=== PATIENT | male | born 1965 | race Caucasian/White ===

== ENCOUNTER 2019-05-27 15:36 | Inpatient (IN) ==
[2019-05-27] MEDS ORDERED: SODIUM CHLORIDE 0.9% 500 ML IV STA (15:57)
[2019-05-27] MEDS ORDERED: ONDANSETRON 4 MG/2 ML VIAL ONE (16:59)
[2019-05-27] MEDS ORDERED: ONDANSETRON 4 MG/2 ML VIAL IV STA (16:59)
[2019-05-27] MEDS ORDERED: HYDROmorphone 2 MG/1 ML VIAL ONE (16:59)
[2019-05-27] MEDS ORDERED: HYDROmorphone 2 MG/1 ML VIAL IV STA (16:59)
[2019-05-27 17:21] LABS: Basophils # 0.1 10*3/uL (0.0-0.2); Basophils % 0.5 % (0.0-0.8); Eosinophils # 0.6 10*3/uL (0.0-0.87); Eosinophils % 5.2 % (0.00-10.9); Hematocrit 38.9 VOL% (42.0-52.0); Hemoglobin 12.7 GM/DL (14.0-18.0); Immature Granulocytes % 1.1 %; Immature Granulocytes Absolute 0.12 #; Lymphocytes # 1.3 10*3/uL (1.4-4.0); Lymphocytes % 11.8 % (21.2-54.2); Mean Corpuscular HGB Conc 32.6 GM/DL (32-36); Mean Corpuscular Volume 78.3 FL (87-102); Mean Platelet Volume 11.3 FL (9.6-12.0); Monocytes % 7.5 % (1.7-12.7); Neutrophils % 73.9 % (38.7-73.9); Platelet Count 229 T/CUMM (130-400); Red Blood Count 4.97 MC/CUMM (3.8-5.5); Red Cell Distribution Width 13.9 % (9.3-17.3); White Blood Count 10.9 T/CUMM (4-12)
[2019-05-27 17:46] LABS: Albumin 2.7 G/DL (3.4-5.0); Bilirubin,Total 0.6 MG/DL (0.2-1.0); Calcium 8.1 MG/DL (8.5-10.1); Osmolality,Calculated 281.2 MOS/KG (273-304)
[2019-05-27] MEDS ORDERED: VANCOMYCIN INJ 1,500 MG in SODIUM CHLORIDE 0.9% 500 ML IV STA (18:03)
[2019-05-27] MEDS ORDERED: ACETAMINOPHEN 325 MG TABLET PO PRN (18:09)
[2019-05-27] MEDS ORDERED: GLUCAGON 1 MG VIAL IM PRN (18:09)
[2019-05-27] MEDS ORDERED: DEXTROSE 50% 25 GM/50 ML VIAL IV PRN (18:09)
[2019-05-27 18:44] LABS: Apearance,Urine CLEAR (Clear); Bacteria,Urine Occasional /HPF (Few); Bilirubin,Urine Negative (Negative); Blood, Urine Negative (Negative); Glucose,Urine (UA) >=500 mg/dL (Negative); Ketones,Urine 5 mg/dL (Negative); Nitrite,Urine Negative (Negative); Protein,Urine Negative; RBC,Urine <1 /HPF (0-4); Squamous Epithelial Cell,Urine Occasional /HPF (0-10); Urine Color Yellow (Yellow); Urine Specific Gravity 1.029 (1.001-1.035); Urine Urobilinogen < 2.0 EU/DL (0.2-1.0); WBC,Urine 1 /HPF (0-6)
[2019-05-27 18:46] LABS: Sedimentation Rate-Westergren 25 MM/HR (0-20)
[2019-05-27] MEDS: SODIUM CHLORIDE 0.9% 1,000 ML IV SCH (20:36)
[2019-05-27] MEDS: VANCOMYCIN INJ 1,750 MG in SODIUM CHLORIDE 0.9% 500 ML IV SCH (20:37)
[2019-05-27] MEDS: ENOXAPARIN 40 MG/0.4 ML SYRINGE SUBCUT SCH (20:43)
[2019-05-27] MEDS: INSULIN LISPRO 100 UNIT/ML SUBCUT SCH (20:44)
[2019-05-27] MEDS: TICAGRELOR 90 MG TABLET PO SCH (20:44)
[2019-05-27] MEDS ORDERED: INFLUENZA VIRUS VACCINE 0.5 ML SYRINGE IM ONE (23:51)
[2019-05-28 05:07] LABS: Basophils % 0.5 % (0.0-0.8); Eosinophils # 0.5 10*3/uL (0.0-0.87); Eosinophils % 6.4 % (0.00-10.9); Hematocrit 33.6 VOL% (42.0-52.0); Hemoglobin 10.6 GM/DL (14.0-18.0); Immature Granulocytes % 1.5 %; Immature Granulocytes Absolute 0.12 #; Lymphocytes % 12.4 % (21.2-54.2); Mean Corpuscular HGB Conc 31.5 GM/DL (32-36); Mean Corpuscular Volume 79.6 FL (87-102); Mean Platelet Volume 11.1 FL (9.6-12.0); Monocytes % 8.9 % (1.7-12.7); Neutrophils % 70.3 % (38.7-73.9); Platelet Count 220 T/CUMM (130-400); Red Blood Count 4.22 MC/CUMM (3.8-5.5); White Blood Count 8.2 T/CUMM (4-12)
[2019-05-28 05:26] LABS: Calcium 8.5 MG/DL (8.5-10.1); Osmolality,Calculated 271.5 MOS/KG (273-304)
[2019-05-28] MEDS: VANCOMYCIN INJ 1,750 MG in SODIUM CHLORIDE 0.9% 500 ML IV SCH ×2 (06:28→17:43)
[2019-05-28] MEDS: INSULIN LISPRO 100 UNIT/ML SUBCUT SCH ×4 (08:59→22:34)
[2019-05-28] MEDS: POTASSIUM CHLORIDE 20 MEQ TABLET PO SCH (09:00)
[2019-05-28] MEDS: ASPIRIN CHEW 81 MG TABLET PO SCH (09:00)
[2019-05-28] MEDS: METOPROLOL SUCCINATE XL 50 MG TABLET PO SCH (09:00)
[2019-05-28] MEDS: lisinopriL 10 MG TABLET PO SCH (09:00)
[2019-05-28] MEDS: ATORVASTATIN 40 MG TABLET PO SCH (09:00)
[2019-05-28] MEDS: TICAGRELOR 90 MG TABLET PO SCH ×2 (09:00→22:33)
[2019-05-28] MEDS: NYSTATIN/TRIAMCINOLONE CREAM 15 GM TUBE TOP SCH ×2 (12:00→22:35)
[2019-05-28] MEDS: SKIN HEALING OINT (AQUAPHOR) 50 GM TUBE TOP SCH (12:00)
[2019-05-28] MEDS: ceFAZolin 2,000 MG in PREMIX 1 EACH IV SCH ×2 (13:38→20:35)
[2019-05-28] MEDS: metFORMIN 500 MG TABLET PO SCH (16:31)
[2019-05-28] MEDS: SODIUM CHLORIDE 0.9% 1,000 ML IV SCH (17:42)
[2019-05-28] MEDS: INSULIN GLARGINE 100 UNIT/ML SUBCUT SCH (22:33)
[2019-05-28] MEDS: sitaGLIPtin 100 MG TABLET PO SCH (22:33)
[2019-05-28] MEDS: ENOXAPARIN 40 MG/0.4 ML SYRINGE SUBCUT SCH (22:33)
[2019-05-29] MEDS: ceFAZolin 2,000 MG in PREMIX 1 EACH IV SCH ×2 (03:08→17:57)
[2019-05-29 06:27] LABS: Basophils % 0.5 % (0.0-0.8); Eosinophils # 0.5 10*3/uL (0.0-0.87); Eosinophils % 6.4 % (0.00-10.9); Hematocrit 34.4 VOL% (42.0-52.0); Hemoglobin 10.8 GM/DL (14.0-18.0); Immature Granulocytes % 1.4 %; Immature Granulocytes Absolute 0.11 #; Lymphocytes # 1.3 10*3/uL (1.4-4.0); Lymphocytes % 16.2 % (21.2-54.2); Mean Corpuscular HGB Conc 31.4 GM/DL (32-36); Mean Corpuscular Volume 80.9 FL (87-102); Mean Platelet Volume 10.8 FL (9.6-12.0); Monocytes % 8.9 % (1.7-12.7); Neutrophils % 66.6 % (38.7-73.9); Platelet Count 237 T/CUMM (130-400); Red Blood Count 4.25 MC/CUMM (3.8-5.5); White Blood Count 7.8 T/CUMM (4-12)
[2019-05-29] MEDS: VANCOMYCIN INJ 1,750 MG in SODIUM CHLORIDE 0.9% 500 ML IV SCH (06:31)
[2019-05-29] MEDS: SODIUM CHLORIDE 0.9% 1,000 ML IV SCH (06:36)
[2019-05-29 06:45] LABS: Calcium 8.3 MG/DL (8.5-10.1); Osmolality,Calculated 273.1 MOS/KG (273-304)
[2019-05-29 06:48] LABS: % Iron Saturation 15.6 % (18-50); Ferritin 38.7 ng/ml (26-388)
[2019-05-29 07:15] LABS: Folate 3.1 NG/ML (5.4-24.0); Vitamin B12 321 PG/ML (211-911)
[2019-05-29] MEDS ORDERED: MORPHINE 4 MG/1 ML VIAL IV ONE (07:31)
[2019-05-29 07:47] LABS: Sedimentation Rate-Westergren 60 MM/HR (0-20)
[2019-05-29] MEDS: TICAGRELOR 90 MG TABLET PO SCH ×2 (11:14→21:48)
[2019-05-29] MEDS: metFORMIN 500 MG TABLET PO SCH ×2 (11:14→17:51)
[2019-05-29] MEDS: lisinopriL 10 MG TABLET PO SCH (11:14)
[2019-05-29] MEDS: NYSTATIN/TRIAMCINOLONE CREAM 15 GM TUBE TOP SCH ×2 (11:15→21:48)
[2019-05-29] MEDS: METOPROLOL SUCCINATE XL 50 MG TABLET PO SCH (11:15)
[2019-05-29] MEDS: MULTIVITAMIN (BEROCCA) TABLET PO SCH (11:15)
[2019-05-29] MEDS: FOLIC ACID 1 MG TABLET PO SCH (11:15)
[2019-05-29] MEDS: ATORVASTATIN 40 MG TABLET PO SCH (11:15)
[2019-05-29] MEDS: POTASSIUM CHLORIDE 20 MEQ TABLET PO SCH (11:15)
[2019-05-29] MEDS: CHOLECALCIFEROL 1,000 UNIT TABLET PO SCH (11:15)
[2019-05-29] MEDS: INSULIN LISPRO 100 UNIT/ML SUBCUT SCH ×4 (11:16→21:49)
[2019-05-29] MEDS: ASPIRIN CHEW 81 MG TABLET PO SCH (11:17)
[2019-05-29] MEDS: CYANOCOBALAMIN 1000 MCG/1 ML VIAL IM SCH (11:18)
[2019-05-29] MEDS: IRON SUCROSE 200 MG in SODIUM CHLORIDE 0.9% 100 ML IV SCH (15:30)
[2019-05-29] MEDS ORDERED: ERGOCALCIFEROL 50,000 UNIT CAPSULE PO ONE (15:36)
[2019-05-29] MEDS: SKIN HEALING OINT (AQUAPHOR) 50 GM TUBE TOP SCH (15:40)
[2019-05-29] MEDS: TERBINAFINE 250 MG TABLET PO SCH (17:51)
[2019-05-29] MEDS: PIPERACILLIN/TAZOBACTAM 3,375 MG in SODIUM CHLORIDE 0.9% 100 ML IV SCH ×2 (17:51→21:52)
[2019-05-29] MEDS: sitaGLIPtin 100 MG TABLET PO SCH (21:48)
[2019-05-29] MEDS: ENOXAPARIN 40 MG/0.4 ML SYRINGE SUBCUT SCH (21:49)
[2019-05-29] MEDS: INSULIN GLARGINE 100 UNIT/ML SUBCUT SCH (21:49)
[2019-05-29] MEDS ORDERED: VANCOMYCIN INJ 1,500 MG in SODIUM CHLORIDE 0.9% 500 ML IV SCH (23:30)
[2019-05-29] MEDS ORDERED: VANCOMYCIN INJ 1,750 MG in SODIUM CHLORIDE 0.9% 500 ML IV SCH (23:30)
[2019-05-30] MEDS: PIPERACILLIN/TAZOBACTAM 3,375 MG in SODIUM CHLORIDE 0.9% 100 ML IV SCH ×3 (04:37→20:58)
[2019-05-30] MEDS ORDERED: MORPHINE 4 MG/1 ML VIAL IV ONE (06:30)
[2019-05-30 07:07] LABS: Basophils % 0.5 % (0.0-0.8); Eosinophils # 0.6 10*3/uL (0.0-0.87); Eosinophils % 7.8 % (0.00-10.9); Hematocrit 34.7 VOL% (42.0-52.0); Hemoglobin 11.2 GM/DL (14.0-18.0); Immature Granulocytes Absolute 0.16 #; Lymphocytes # 1.3 10*3/uL (1.4-4.0); Lymphocytes % 15.4 % (21.2-54.2); Mean Corpuscular HGB Conc 32.3 GM/DL (32-36); Mean Corpuscular Volume 79.2 FL (87-102); Neutrophils % 66.3 % (38.7-73.9); Platelet Count 247 T/CUMM (130-400); Red Blood Count 4.38 MC/CUMM (3.8-5.5); Red Cell Distribution Width 13.8 % (9.3-17.3); White Blood Count 8.2 T/CUMM (4-12)
[2019-05-30 07:36] LABS: Calcium 8.3 MG/DL (8.5-10.1); Osmolality,Calculated 266.5 MOS/KG (273-304)
[2019-05-30] MEDS: INSULIN LISPRO 100 UNIT/ML SUBCUT SCH ×4 (08:12→21:05)
[2019-05-30] MEDS: IRON SUCROSE 200 MG in SODIUM CHLORIDE 0.9% 100 ML IV SCH (09:13)
[2019-05-30] MEDS: TERBINAFINE 250 MG TABLET PO SCH (09:13)
[2019-05-30] MEDS: CHOLECALCIFEROL 1,000 UNIT TABLET PO SCH (09:14)
[2019-05-30] MEDS: TICAGRELOR 90 MG TABLET PO SCH ×2 (09:14→21:04)
[2019-05-30] MEDS: CYANOCOBALAMIN 1000 MCG/1 ML VIAL IM SCH (09:14)
[2019-05-30] MEDS: ATORVASTATIN 40 MG TABLET PO SCH (09:14)
[2019-05-30] MEDS: metFORMIN 500 MG TABLET PO SCH ×2 (09:14→17:01)
[2019-05-30] MEDS: ASPIRIN CHEW 81 MG TABLET PO SCH (09:14)
[2019-05-30] MEDS: METOPROLOL SUCCINATE XL 50 MG TABLET PO SCH (09:14)
[2019-05-30] MEDS: MULTIVITAMIN (BEROCCA) TABLET PO SCH (09:14)
[2019-05-30] MEDS: lisinopriL 10 MG TABLET PO SCH (09:15)
[2019-05-30] MEDS: FOLIC ACID 1 MG TABLET PO SCH (09:15)
[2019-05-30] MEDS: POTASSIUM CHLORIDE 20 MEQ TABLET PO SCH (09:15)
[2019-05-30 09:34] LABS: Hemoglobin A1 (Alkaline) 97.6 % (96.5-98.5); Hemoglobin A2 (Alkaline) 2.4 % (1.5-3.5)
[2019-05-30] MEDS: SODIUM CHLORIDE 0.9% 1,000 ML IV SCH ×2 (13:51→20:58)
[2019-05-30] MEDS: SKIN HEALING OINT (AQUAPHOR) 50 GM TUBE TOP SCH (15:16)
[2019-05-30] MEDS: NYSTATIN/TRIAMCINOLONE CREAM 15 GM TUBE TOP SCH ×2 (15:16→21:05)
[2019-05-30] MEDS ORDERED: TUBERCULIN SKIN TEST 0.1 ML SYRINGE INTRADERM ONE (15:23)
[2019-05-30] MEDS: sitaGLIPtin 100 MG TABLET PO SCH (21:04)
[2019-05-30] MEDS: ENOXAPARIN 40 MG/0.4 ML SYRINGE SUBCUT SCH (21:04)
[2019-05-30] MEDS: INSULIN GLARGINE 100 UNIT/ML SUBCUT SCH (21:04)
[2019-05-30] MEDS ORDERED: VANCOMYCIN INJ 1,750 MG in SODIUM CHLORIDE 0.9% 500 ML IV SCH (23:00)
[2019-05-31] MEDS: PIPERACILLIN/TAZOBACTAM 3,375 MG in SODIUM CHLORIDE 0.9% 100 ML IV SCH ×3 (04:02→20:47)
[2019-05-31 04:51] LABS: Basophils # 0.1 10*3/uL (0.0-0.2); Basophils % 0.7 % (0.0-0.8); Eosinophils # 0.7 10*3/uL (0.0-0.87); Eosinophils % 6.9 % (0.00-10.9); Hematocrit 35.5 VOL% (42.0-52.0); Hemoglobin 11.3 GM/DL (14.0-18.0); Immature Granulocytes % 2.3 %; Immature Granulocytes Absolute 0.22 #; Lymphocytes # 1.4 10*3/uL (1.4-4.0); Lymphocytes % 14.5 % (21.2-54.2); Mean Corpuscular HGB Conc 31.8 GM/DL (32-36); Mean Corpuscular Volume 80.7 FL (87-102); Mean Platelet Volume 10.8 FL (9.6-12.0); Neutrophils % 68.6 % (38.7-73.9); Platelet Count 250 T/CUMM (130-400); Red Cell Distribution Width 13.9 % (9.3-17.3); White Blood Count 9.6 T/CUMM (4-12)
[2019-05-31 05:10] LABS: Calcium 8.6 MG/DL (8.5-10.1); Osmolality,Calculated 265.5 MOS/KG (273-304)
[2019-05-31] MEDS: INSULIN LISPRO 100 UNIT/ML SUBCUT SCH ×4 (09:38→20:54)
[2019-05-31] MEDS: IRON SUCROSE 200 MG in SODIUM CHLORIDE 0.9% 100 ML IV SCH (10:22)
[2019-05-31] MEDS: lisinopriL 10 MG TABLET PO SCH (10:25)
[2019-05-31] MEDS: TICAGRELOR 90 MG TABLET PO SCH ×2 (10:25→20:47)
[2019-05-31] MEDS: POTASSIUM CHLORIDE 20 MEQ TABLET PO SCH (10:25)
[2019-05-31] MEDS: FOLIC ACID 1 MG TABLET PO SCH (10:25)
[2019-05-31] MEDS: CHOLECALCIFEROL 1,000 UNIT TABLET PO SCH (10:25)
[2019-05-31] MEDS: MULTIVITAMIN (BEROCCA) TABLET PO SCH (10:25)
[2019-05-31] MEDS: metFORMIN 500 MG TABLET PO SCH ×2 (10:25→19:16)
[2019-05-31] MEDS: METOPROLOL SUCCINATE XL 50 MG TABLET PO SCH (10:26)
[2019-05-31] MEDS: ASPIRIN CHEW 81 MG TABLET PO SCH (10:26)
[2019-05-31] MEDS: SKIN HEALING OINT (AQUAPHOR) 50 GM TUBE TOP SCH (10:26)
[2019-05-31] MEDS: ATORVASTATIN 40 MG TABLET PO SCH (10:27)
[2019-05-31] MEDS: NYSTATIN/TRIAMCINOLONE CREAM 15 GM TUBE TOP SCH ×2 (10:27→20:48)
[2019-05-31] MEDS: CYANOCOBALAMIN 1000 MCG/1 ML VIAL IM SCH (10:28)
[2019-05-31] MEDS: TERBINAFINE 250 MG TABLET PO SCH (10:31)
[2019-05-31] MEDS: SODIUM CHLORIDE 0.9% 1,000 ML IV SCH (19:16)
[2019-05-31] MEDS: sitaGLIPtin 100 MG TABLET PO SCH (20:47)
[2019-05-31] MEDS: INSULIN GLARGINE 100 UNIT/ML SUBCUT SCH (20:48)
[2019-05-31] MEDS: ENOXAPARIN 40 MG/0.4 ML SYRINGE SUBCUT SCH (20:48)
[2019-06-01] MEDS: PIPERACILLIN/TAZOBACTAM 3,375 MG in SODIUM CHLORIDE 0.9% 100 ML IV SCH ×3 (04:44→21:38)
[2019-06-01 06:50] LABS: Basophils # 0.1 10*3/uL (0.0-0.2); Basophils % 0.5 % (0.0-0.8); Eosinophils # 0.5 10*3/uL (0.0-0.87); Eosinophils % 4.6 % (0.00-10.9); Hematocrit 36.1 VOL% (42.0-52.0); Hemoglobin 11.3 GM/DL (14.0-18.0); Immature Granulocytes % 2.1 %; Immature Granulocytes Absolute 0.22 #; Lymphocytes # 1.4 10*3/uL (1.4-4.0); Lymphocytes % 13.2 % (21.2-54.2); Mean Corpuscular HGB Conc 31.3 GM/DL (32-36); Mean Corpuscular Volume 80.9 FL (87-102); Mean Platelet Volume 10.8 FL (9.6-12.0); Monocytes % 6.8 % (1.7-12.7); Neutrophils % 72.8 % (38.7-73.9); Platelet Count 258 T/CUMM (130-400); Red Blood Count 4.46 MC/CUMM (3.8-5.5); Red Cell Distribution Width 14.2 % (9.3-17.3); White Blood Count 10.6 T/CUMM (4-12)
[2019-06-01 07:05] LABS: Calcium 8.7 MG/DL (8.5-10.1); Osmolality,Calculated 265.5 MOS/KG (273-304)
[2019-06-01] MEDS: ASPIRIN CHEW 81 MG TABLET PO SCH (09:45)
[2019-06-01] MEDS: CHOLECALCIFEROL 1,000 UNIT TABLET PO SCH (09:45)
[2019-06-01] MEDS: POTASSIUM CHLORIDE 20 MEQ TABLET PO SCH (09:45)
[2019-06-01] MEDS: TICAGRELOR 90 MG TABLET PO SCH ×2 (09:46→21:23)
[2019-06-01] MEDS: lisinopriL 10 MG TABLET PO SCH (09:46)
[2019-06-01] MEDS: ATORVASTATIN 40 MG TABLET PO SCH (09:46)
[2019-06-01] MEDS: METOPROLOL SUCCINATE XL 50 MG TABLET PO SCH (09:46)
[2019-06-01] MEDS: TERBINAFINE 250 MG TABLET PO SCH (09:46)
[2019-06-01] MEDS: metFORMIN 500 MG TABLET PO SCH ×2 (09:46→16:45)
[2019-06-01] MEDS: FOLIC ACID 1 MG TABLET PO SCH (09:46)
[2019-06-01] MEDS: CYANOCOBALAMIN 1000 MCG/1 ML VIAL IM SCH (09:46)
[2019-06-01] MEDS: MULTIVITAMIN (BEROCCA) TABLET PO SCH (09:46)
[2019-06-01] MEDS: NYSTATIN/TRIAMCINOLONE CREAM 15 GM TUBE TOP SCH ×2 (09:47→21:46)
[2019-06-01] MEDS: IRON SUCROSE 200 MG in SODIUM CHLORIDE 0.9% 100 ML IV SCH (09:59)
[2019-06-01] MEDS: INSULIN LISPRO 100 UNIT/ML SUBCUT SCH ×4 (10:00→21:13)
[2019-06-01] MEDS: SKIN HEALING OINT (AQUAPHOR) 50 GM TUBE TOP SCH (12:11)
[2019-06-01] MEDS: SODIUM CHLORIDE 0.9% 1,000 ML IV SCH (19:42)
[2019-06-01] MEDS: INSULIN GLARGINE 100 UNIT/ML SUBCUT SCH (21:22)
[2019-06-01] MEDS: sitaGLIPtin 100 MG TABLET PO SCH (21:23)
[2019-06-01] MEDS: ENOXAPARIN 40 MG/0.4 ML SYRINGE SUBCUT SCH (21:26)
[2019-06-02] MEDS: PIPERACILLIN/TAZOBACTAM 3,375 MG in SODIUM CHLORIDE 0.9% 100 ML IV SCH ×3 (03:14→20:40)
[2019-06-02 05:52] LABS: Basophils # 0.1 10*3/uL (0.0-0.2); Basophils % 0.6 % (0.0-0.8); Eosinophils # 0.5 10*3/uL (0.0-0.87); Eosinophils % 4.6 % (0.00-10.9); Hematocrit 37.4 VOL% (42.0-52.0); Hemoglobin 11.9 GM/DL (14.0-18.0); Immature Granulocytes Absolute 0.23 #; Lymphocytes # 1.3 10*3/uL (1.4-4.0); Lymphocytes % 11.1 % (21.2-54.2); Mean Corpuscular HGB Conc 31.8 GM/DL (32-36); Mean Corpuscular Volume 79.7 FL (87-102); Mean Platelet Volume 10.6 FL (9.6-12.0); Monocytes % 5.1 % (1.7-12.7); Neutrophils % 76.6 % (38.7-73.9); Platelet Count 251 T/CUMM (130-400); Red Blood Count 4.69 MC/CUMM (3.8-5.5); Red Cell Distribution Width 14.5 % (9.3-17.3); White Blood Count 11.7 T/CUMM (4-12)
[2019-06-02 06:08] LABS: Calcium 8.9 MG/DL (8.5-10.1); Osmolality,Calculated 264.5 MOS/KG (273-304)
[2019-06-02] MEDS: FOLIC ACID 1 MG TABLET PO SCH (09:27)
[2019-06-02] MEDS: CHOLECALCIFEROL 1,000 UNIT TABLET PO SCH (09:27)
[2019-06-02] MEDS: POTASSIUM CHLORIDE 20 MEQ TABLET PO SCH (09:27)
[2019-06-02] MEDS: TICAGRELOR 90 MG TABLET PO SCH ×2 (09:27→20:40)
[2019-06-02] MEDS: metFORMIN 500 MG TABLET PO SCH ×2 (09:28→17:59)
[2019-06-02] MEDS: ASPIRIN CHEW 81 MG TABLET PO SCH (09:28)
[2019-06-02] MEDS: ATORVASTATIN 40 MG TABLET PO SCH (09:28)
[2019-06-02] MEDS: MULTIVITAMIN (BEROCCA) TABLET PO SCH (09:28)
[2019-06-02] MEDS: lisinopriL 10 MG TABLET PO SCH (09:28)
[2019-06-02] MEDS: CYANOCOBALAMIN 1000 MCG/1 ML VIAL IM SCH (09:28)
[2019-06-02] MEDS: TERBINAFINE 250 MG TABLET PO SCH (09:28)
[2019-06-02 09:58] LABS: Procalcitonin, S 0.12 ng/mL (<=0.15)
[2019-06-02] MEDS: METOPROLOL SUCCINATE XL 50 MG TABLET PO SCH (10:23)
[2019-06-02] MEDS: INSULIN LISPRO 100 UNIT/ML SUBCUT SCH ×4 (10:43→20:30)
[2019-06-02] MEDS: NYSTATIN/TRIAMCINOLONE CREAM 15 GM TUBE TOP SCH ×2 (13:20→20:41)
[2019-06-02] MEDS: SKIN HEALING OINT (AQUAPHOR) 50 GM TUBE TOP SCH (13:20)
[2019-06-02] MEDS: IRON SUCROSE 200 MG in SODIUM CHLORIDE 0.9% 100 ML IV SCH (17:21)
[2019-06-02] MEDS: ENOXAPARIN 40 MG/0.4 ML SYRINGE SUBCUT SCH (20:36)
[2019-06-02] MEDS: sitaGLIPtin 100 MG TABLET PO SCH (20:41)
[2019-06-02] MEDS: INSULIN GLARGINE 100 UNIT/ML SUBCUT SCH (20:41)
[2019-06-03] MEDS: PIPERACILLIN/TAZOBACTAM 3,375 MG in SODIUM CHLORIDE 0.9% 100 ML IV SCH ×2 (03:19→13:21)
[2019-06-03 05:25] LABS: Basophils % 0.4 % (0.0-0.8); Eosinophils # 0.5 10*3/uL (0.0-0.87); Eosinophils % 4.9 % (0.00-10.9); Hematocrit 38.2 VOL% (42.0-52.0); Immature Granulocytes Absolute 0.21 #; Lymphocytes # 1.5 10*3/uL (1.4-4.0); Lymphocytes % 13.9 % (21.2-54.2); Mean Corpuscular HGB Conc 31.4 GM/DL (32-36); Mean Corpuscular Volume 80.3 FL (87-102); Mean Platelet Volume 10.7 FL (9.6-12.0); Monocytes % 6.4 % (1.7-12.7); Neutrophils % 72.4 % (38.7-73.9); Platelet Count 248 T/CUMM (130-400); Red Blood Count 4.76 MC/CUMM (3.8-5.5); Red Cell Distribution Width 14.7 % (9.3-17.3); White Blood Count 10.6 T/CUMM (4-12)
[2019-06-03 05:48] LABS: Osmolality,Calculated 266.5 MOS/KG (273-304)
[2019-06-03 05:55] LABS: Eosinophils 1 % (0-10); Hypochromasia 1+; Lymphocytes 12 % (20-55); Platelet Estimate Adequate; Segmented Neutrophils 79 % (50-85); Total Cells Counted 100
[2019-06-03] MEDS: SODIUM CHLORIDE 0.9% 1,000 ML IV SCH (07:20)
[2019-06-03] MEDS: INSULIN LISPRO 100 UNIT/ML SUBCUT SCH ×2 (08:50→13:21)
[2019-06-03] MEDS: POTASSIUM CHLORIDE 20 MEQ TABLET PO SCH (09:11)
[2019-06-03] MEDS: TERBINAFINE 250 MG TABLET PO SCH (09:11)
[2019-06-03] MEDS: FOLIC ACID 1 MG TABLET PO SCH (09:11)
[2019-06-03] MEDS: ASPIRIN CHEW 81 MG TABLET PO SCH (09:11)
[2019-06-03] MEDS: ATORVASTATIN 40 MG TABLET PO SCH (09:11)
[2019-06-03] MEDS: CHOLECALCIFEROL 1,000 UNIT TABLET PO SCH (09:11)
[2019-06-03] MEDS: NYSTATIN/TRIAMCINOLONE CREAM 15 GM TUBE TOP SCH (09:12)
[2019-06-03] MEDS: METOPROLOL SUCCINATE XL 50 MG TABLET PO SCH (09:12)
[2019-06-03] MEDS: MULTIVITAMIN (BEROCCA) TABLET PO SCH (09:12)
[2019-06-03] MEDS: metFORMIN 500 MG TABLET PO SCH (09:12)
[2019-06-03] MEDS: TICAGRELOR 90 MG TABLET PO SCH (09:12)
[2019-06-03] MEDS: lisinopriL 10 MG TABLET PO SCH (09:12)
[2019-06-03] MEDS: SKIN HEALING OINT (AQUAPHOR) 50 GM TUBE TOP SCH (09:13)
[2019-06-03] MEDS ORDERED: ZINC OXIDE PASTE 113 GM TUBE TOP PRN (10:48)
[2019-06-03 12:59] VITALS: BP 111/69
[2019-06-03] MEDS ORDERED: NYSTATIN POWDER 15 GM BOTTLE TOP SCH (15:00)
[2019-06-06 12:26] LABS: Soluble Transf Receptor (sTfR) 3.7 mg/L (1.8 - 4.6)
== END 2019-06-03 13:53 | disposition swing bed (61) | DRG 420 ==
LOC: EDBD → EDUNIT# → N.ED 15:36 → SUATTDRO 18:09 → N.EDINP 18:09 → N.5E 18:30
PROVIDERS: ADMIT Internal Medicine Geriatric Medicine; ATTEND Hospitalist